=== PATIENT | female | born 1960 | race Caucasian/White ===

== ENCOUNTER → 2017-01-16 | Outpatient (CLI) | payer BC ==
[~2017-01-16] MED LIST: ASPI-524 PO
== END | disposition home or self-care (01) ==
LOC: SMA 08:02
PROVIDERS: ATTEND Family Medicine
DX: Z12.31 Encounter for screening mammogram for malignant neoplasm of breast (principal)
CPT/HCPCS: G0202

== ENCOUNTER 2018-03-13 12:34 | Outpatient (CLI) | payer BC | END 2018-03-13 21:10 | disposition home or self-care (01) | LOC: SMA 12:34 | PROVIDERS: ATTEND Family Medicine | DX: Z12.31 Encounter for screening mammogram for malignant neoplasm of breast (principal); E04.1 Nontoxic single thyroid nodule | CPT/HCPCS: 76536-TC; 77067 ==

== ENCOUNTER 2018-12-08 09:38 | Outpatient (CLI) | payer OTHER | END 2018-12-08 21:08 | disposition home or self-care (01) | LOC: SUS 09:38 | DX: E04.2 Nontoxic multinodular goiter (principal); R32 Unspecified urinary incontinence | CPT/HCPCS: 76536-TC; 76856-TC ==

== ENCOUNTER 2019-03-25 09:20 | Outpatient (CLI) | payer OTHER ==
[2019-03-25 10:44] LABS: BASOPHILS % (AUTO) 0.9 % (0.0-2.0); BILIRUBIN,URINE NEGATIVE (NEGATIVE); BLOOD, URINE 3+ (NEGATIVE); CLARITY/URINE CLEAR (CLEAR); COLOR,URINE YELLOW (YELLOW); EOSINOPHILS % (AUTO) 0.8 % (0.0-4.0); GLUCOSE,URINE NEGATIVE (NEGATIVE); HEMATOCRIT 38.7 % (36-48); HEMOGLOBIN 13.1 g/dL (12.0-16.0); KETONES,URINE NEGATIVE (NEGATIVE); LEUKOCYTE ESTERASE ,URINE NEGATIVE (NEGATIVE); LYMPHOCYTES # (AUTO) 1.2 K/uL (1.0-5.5); LYMPHOCYTES % (AUTO) 22.2 % (20.5-51.5); MEAN CORPUSCULAR HEMOGLOBIN 30 pg (27-31); MEAN CORPUSCULAR HGB CONC 34 % (32-36); MEAN CORPUSCULAR VOLUME 89 fL (79.0-98.0); MONOCYTES # (AUTO) 0.4 K/uL (0.0-1.0); MONOCYTES % (AUTO) 6.9 % (1.7-9.3); NEUTROPHILS # (AUTO) 3.9 K/uL (1.8-7.7); NEUTROPHILS % (AUTO) 69.2 % (40.0-70.0); NITRITE, URINE NEGATIVE (NEGATIVE); PLATELET COUNT (AUTO) 288 K/uL (130-430); PROTEIN URINE NEGATIVE (NEGATIVE); RED BLOOD CELL COUNT(AUTO) 4.33 MIL/uL (4.2-6.2); RED CELL DISTRIBUTION WIDTH 13.6 % (9.0-15.0); UROBILINOGEN,URINE 0.2 (0.2-1.0); WHITE BLOOD COUNT (AUTO) 5.6 K/uL (4.8-10.8)
[2019-03-25 10:53] LABS: BACTERIA,URINE FEW /HPF (None Seen); RBC,URINE 20-50 /HPF (0-3); WBC,URINE 0-3 /HPF (0-3)
[2019-03-25 11:11] LABS: ALANINE AMINOTRANSFERASE 23 U/L (12-78); ALBUMIN 3.8 g/dL (3.4-4.8); ASPARTATE AMINOTRANSFERASE 21 U/L (10-37); CALCIUM 9.5 mg/dL (8.4-11.0); CHLORIDE 106 mmol/L (98-107); CHOLESTEROL 214 mg/dL (<200); CREATININE 0.73 mg/dL (0.55-1.30); GLUCOSE 94 mg/dL (70-99); HDL CHOLESTEROL 63 mg/dL (>55); LDL CHOLESTEROL 127 mg/dL (<100); POTASSIUM 3.7 mmol/L (3.5-5.1); SODIUM SERUM 140 mmol/L (136-145); TOTAL BILIRUBIN 0.4 mg/dL (0.0-1.0); TRIGLYCERIDES 74 mg/dL (30-150); UREA NITROGEN, BLOOD 21 mg/dL (8-21); URIC ACID 3.6 mg/dL (2.4-7.0)
[2019-03-25 11:16] LABS: GFR AFRICAN AMERICAN 105 mL/min (>90)
[2019-03-25 11:37] LABS: ANION GAP < 3 (5-15)
== END 2019-03-25 20:47 | disposition home or self-care (01) ==
LOC: SMA 09:20
PROVIDERS: ATTEND Family Medicine
DX: Z12.31 Encounter for screening mammogram for malignant neoplasm of breast (principal); E04.2 Nontoxic multinodular goiter
CPT/HCPCS: 36415; 76536-TC; 77067; 80053; 80061; 81000-TC; 82306; 82607; 84443-TC; 84550-TC; 85025

== ENCOUNTER 2019-05-18 09:10 | Outpatient (CLI) | payer OTHER | END 2019-05-18 21:04 | disposition home or self-care (01) | LOC: SUS 09:10 | PROVIDERS: ATTEND Family Medicine | DX: E04.1 Nontoxic single thyroid nodule (principal); E04.8 Other specified nontoxic goiter | CPT/HCPCS: 76536-TC ==

== ENCOUNTER 2020-04-04 08:28 | Outpatient (CLI) | payer OTHER | END 2020-04-04 18:56 | disposition home or self-care (01) | LOC: SUS 08:28 | PROVIDERS: ATTEND Family Medicine | DX: Z12.31 Encounter for screening mammogram for malignant neoplasm of breast (principal); E04.2 Nontoxic multinodular goiter; N28.1 Cyst of kidney, acquired; K76.89 Other specified diseases of liver | CPT/HCPCS: 71046-TC; 76536-TC; 76700-TC; 77067 ==

== ENCOUNTER 2020-09-12 09:59 | Outpatient (CLI) | payer OTHER | END 2020-09-12 20:59 | disposition home or self-care (01) | LOC: SUS 09:59 | PROVIDERS: ATTEND Family Medicine | DX: E04.2 Nontoxic multinodular goiter (principal) | CPT/HCPCS: 76536-TC ==

== ENCOUNTER 2021-05-01 08:32 | Outpatient (CLI) | payer OTHER | END 2021-05-01 20:04 | disposition home or self-care (01) | LOC: SMA 08:32 | PROVIDERS: ATTEND Family Medicine | DX: Z12.31 Encounter for screening mammogram for malignant neoplasm of breast (principal) | CPT/HCPCS: 77067 ==